=== PATIENT | female | born 1970 | race Caucasian/White ===

== ENCOUNTER 2024-02-14 20:38 | Inpatient (IN) | payer OTHER ==
[~2024-02-14] VITALS: Ht 152.4 cm; Wt 52.2 kg
[2024-02-14 20:38] VITALS: BP 175/90; PULSE 95; RESP 14; TEMP 97; O2SAT 96
[2024-02-14] MEDS ORDERED: DEXTROSE 50% 50 ML SYR IVP ONE (20:50)
[2024-02-14 21:16] LABS: APPEARANCE,URINE CLEAR (CLEAR); BILIRUBIN,URINE NEGATIVE (NEGATIVE); BLOOD, URINE NEGATIVE (NEGATIVE); LEUKOCYTE ESTERASE ,URINE NEGATIVE (NEGATIVE); NITRITE, URINE NEGATIVE (NEGATIVE); PH,URINE 6.5 (5.0-9.0); PROTEIN,URINE NEGATIVE (NEGATIVE); UGLUCOSE NEGATIVE (NEGATIVE); UROBILINOGEN,URINE 0.2 EU/dL (0.2 - 1)
[2024-02-14 21:17] LABS: BASOPHILS % (AUTO) 0.4 % (0.0-2.0); EOSINOPHILS % (AUTO) 0.3 % (0.0-4.0); HEMATOCRIT 30.1 % (36-48); HEMOGLOBIN 10.9 g/dL (12.0-16.0); LYMPHOCYTES % (AUTO) 32.6 % (20.5-51.1); MEAN CORPUSCULAR HEMOGLOBIN 31 pg (27-31); MEAN CORPUSCULAR HGB CONC 36 g/dL (33-37); MEAN CORPUSCULAR VOLUME 85.1 fL (80-94); MONOCYTES # (AUTO) 0.4 K/uL (0.8-1.0); MONOCYTES % (AUTO) 5.8 % (1.7-9.3); NEUTROPHILS # (AUTO) 3.7 K/uL (1.8-7.7); NEUTROPHILS % (AUTO) 60.9 % (42.2-75.2); PLATELET COUNT (AUTO) 304 K/uL (140-450); RED BLOOD CELL COUNT(AUTO) 3.54 MIL/uL (4.20-5.40); RED CELL DISTRIBUTION WIDTH 13.1 % (11.6-13.7)
[2024-02-14] MEDS: DEXTROSE 50% 50 ML SYR IVP ONE (21:17)
[2024-02-14] MEDS: NACL 0.9% 1,000 ML IV ONE (21:18)
[2024-02-14 21:19] LABS: COLOR,URINE STRAW (YELLOW)
[2024-02-14 21:28] LABS: ANION GAP 12.7 (8-16); CALCIUM 8.7 mg/dL (8.5-10.1); CARBON DIOXIDE 27.1 mmol/L (21-32); CREATININE 0.7 mg/dL (0.6-1.3); POTASSIUM 3.8 mmol/L (3.5-5.1)
[2024-02-14 21:41] LABS: ALANINE AMINOTRANSFERASE 45 U/L (12-78); ALBUMIN 3.8 g/dL (3.4-5.0); ALKALINE PHOSPHATASE 76 U/L (50-136); ASPARTATE AMINOTRANSFERASE 43 U/L (15-37); BILIRUBIN,DIRECT 0.1 mg/dL (0.0-0.3); THYROID STIMULATING HORMONE 2.06 uIU/mL (0.34-3.74); TOTAL BILIRUBIN 0.4 mg/dL (0.0-1.0); TOTAL PROTEIN, SERUM 7.1 g/dL (6.4-8.2)
[2024-02-14 21:56] LABS: INR 0.95 (0.8-1.2); PARTIAL THROMBOPLASTIN TIME 30.9 secs (22-35.6)
[2024-02-14] MEDS ORDERED: MAG SULF 2000 MG/WATER PREMIX 50 ML IV PRN (23:05)
[2024-02-14] MEDS ORDERED: ONDANSETRON 4 MG/2 ML VIAL IVP PRN (23:05)
[2024-02-14] MEDS ORDERED: MAGNESIUM OXIDE 400 MG TAB PO PRN (23:05)
[2024-02-14] MEDS ORDERED: KCL 20 MEQ IN 100 mL PREMIX 200 ML IV PRN (23:05)
[2024-02-14] MEDS ORDERED: ACETAMINOPHEN 325 MG TAB PO PRN (23:05)
[2024-02-14] MEDS: ASPIRIN 325 MG TAB PO ONE (23:05)
[2024-02-14] MEDS ORDERED: POTASSIUM CHLORIDE 10 MEQ TABER PO PRN (23:05)
[2024-02-14] MEDS ORDERED: DEXTROSE 50% 50 ML SYR IVP PRN (23:10)
[2024-02-14] MEDS ORDERED: GLIP5TER PO (23:35)
[2024-02-14] MEDS ORDERED: LISI-953 PO (23:35)
[2024-02-14] MEDS: NACL 0.9% 1,000 ML IV SCH (23:37)
[2024-02-15 00:50] VITALS: BP 122/82; PULSE 82; PULSE 84; RESP 18; TEMP 98.3; O2SAT 97
[2024-02-15] MEDS: DEXT 5% / NACL 0.9% 500 ML IV ONE (00:50)
[2024-02-15 04:15] VITALS: PULSE 76
[2024-02-15] MEDS: BLOOD GLUCOSE MONITORING 1 DEV DEV FS SCH (06:56)
[2024-02-15 07:36] LABS: BASOPHILS % (AUTO) 0.8 % (0.0-2.0); EOSINOPHILS % (AUTO) 0.5 % (0.0-4.0); HEMATOCRIT 28.3 % (36-48); LYMPHOCYTES # (AUTO) 1.7 K/uL (2.5-16.5); LYMPHOCYTES % (AUTO) 42.1 % (20.5-51.1); MEAN CORPUSCULAR HEMOGLOBIN 30 pg (27-31); MEAN CORPUSCULAR HGB CONC 35 g/dL (33-37); MEAN CORPUSCULAR VOLUME 85.2 fL (80-94); MONOCYTES # (AUTO) 0.3 K/uL (0.8-1.0); MONOCYTES % (AUTO) 7.7 % (1.7-9.3); NEUTROPHILS % (AUTO) 48.9 % (42.2-75.2); PLATELET COUNT (AUTO) 307 K/uL (140-450); RED BLOOD CELL COUNT(AUTO) 3.33 MIL/uL (4.20-5.40); RED CELL DISTRIBUTION WIDTH 13.2 % (11.6-13.7); WHITE BLOOD COUNT (AUTO) 4.1 K/uL (4.8-10.8)
[2024-02-15 07:50] LABS: ANION GAP 10.6 (8-16); CALCIUM 8.4 mg/dL (8.5-10.1); CARBON DIOXIDE 24.7 mmol/L (21-32); CREATININE 0.5 mg/dL (0.6-1.3); POTASSIUM 4.3 mmol/L (3.5-5.1)
[2024-02-15 07:58] LABS: MAGNESIUM 1.9 mg/dL (1.8-2.4); PHOSPHORUS 3.8 mg/dL (2.5-4.9)
[2024-02-15 08:00] VITALS: BP 138/77; PULSE 91; RESP 18; TEMP 97.1; O2SAT 98
[2024-02-15] MEDS: HYDROcodone/APAP 5/325 MG 1 TAB TAB PO PRN (08:17)
[2024-02-15] MEDS: NACL 0.45% 1,000 ML IV SCH (09:50)
[2024-02-15] MEDS: INSULIN LISPRO SLIDING SCALE 100 UNITS/ML VIAL SUBQ PRN (11:59)
[2024-02-15 12:00] VITALS: BP 144/79; PULSE 80; PULSE 88; RESP 18; TEMP 97; O2SAT 98
[2024-02-15 15:23] VITALS: BP 144/79; PULSE 88; RESP 18; TEMP 97.1
[2024-02-15 16:04] LABS: ANION GAP 10.8 (8-16); CALCIUM 8.5 mg/dL (8.5-10.1); CARBON DIOXIDE 24.9 mmol/L (21-32); CREATININE 0.5 mg/dL (0.6-1.3); POTASSIUM 4.7 mmol/L (3.5-5.1)
[2024-02-15] MEDS ORDERED: MEDS-TO-BEDS MC SCH (21:00)
== END 2024-02-15 16:35 | disposition home or self-care (01) | DRG 190 ==
LOC: MED 20:38 → MTU 23:04 → OBSVTOIN 23:04 → INTOOBSV 23:04 → MTU 23:35
PROVIDERS: ADMIT Internal Medicine; ATTEND Internal Medicine
DX: I21.4 Non-ST elevation (NSTEMI) myocardial infarction (principal); E11.649 Type 2 diabetes mellitus with hypoglycemia without coma; E87.1 Hypo-osmolality and hyponatremia; I10 Essential (primary) hypertension; Z79.899 Other long term (current) drug therapy; D53.9 Nutritional anemia, unspecified
CPT/HCPCS: 36415; 70450; 71045; 80048; 80076; 81003; 82948; 83605; 83735; 84100; 84443; 84484; 85025; 85610; 85730; 87040; 87081; 93005; 96361; 96374; 99291; G0378; J1644

== ENCOUNTER 2024-03-31 15:22 | Emergency (ER) | payer OTHER ==
[~2024-03-31] VITALS: Ht 152.4 cm; Wt 63.2 kg
[~2024-03-31 15:22] MED LIST: GLIP5TER PO; LISI-953 PO
[2024-03-31 15:35] VITALS: BP 154/81; PULSE 94; RESP 18; TEMP 97.9; O2SAT 100
[2024-03-31] MEDS ORDERED: METH-1681 PO (17:46)
[2024-03-31] MEDS ORDERED: IBUP-2213 PO (17:46)
[2024-03-31] MEDS: KETOROLAC 30 MG/ML VIAL IM ONE (18:12)
[2024-03-31] MEDS ORDERED: LID5T TP (18:40)
[2024-03-31 18:47] VITALS: BP 142/78; PULSE 89; RESP 18; TEMP 97.9; O2SAT 100
== END 2024-03-31 18:48 | disposition home or self-care (01) ==
LOC: MED 15:22
DX: S29.012A Strain of muscle and tendon of back wall of thorax, initial encounter (principal); S46.911A Strain of unspecified muscle, fascia and tendon at shoulder and upper arm level, right arm, initial encounter; E11.9 Type 2 diabetes mellitus without complications; I10 Essential (primary) hypertension; Z79.899 Other long term (current) drug therapy; W07.XXXA Fall from chair, initial encounter; Y93.89 Activity, other specified; Y92.89 Other specified places as the place of occurrence of the external cause; Y99.8 Other external cause status
CPT/HCPCS: 72072; 73030; 81025; 96372; 99284; J1885

== ENCOUNTER 2024-05-19 15:23 | Emergency (ER) | payer OTHER ==
[~2024-05-19] VITALS: Ht 157.5 cm; Wt 62.6 kg
[~2024-05-19 15:23] MED LIST changes: +IBUP-2213 PO; +LID5T TP; +METH-1681 PO
[2024-05-19 15:31] VITALS: BP 138/69; PULSE 90; RESP 22; TEMP 98; O2SAT 99
[2024-05-19] MEDS ORDERED: GABA300C PO (16:13)
[2024-05-19] MEDS: GABAPENTIN 300 MG CAP PO ONE (16:15)
[2024-05-19 16:29] VITALS: BP 136/68; PULSE 86; RESP 18; TEMP 98; O2SAT 99
[2024-05-19] MEDS ORDERED: DICL20GE TP (16:29)
== END 2024-05-19 16:30 | disposition home or self-care (01) ==
LOC: MED 15:23
DX: E11.40 Type 2 diabetes mellitus with diabetic neuropathy, unspecified (principal); Z79.84 Long term (current) use of oral hypoglycemic drugs; I10 Essential (primary) hypertension; Z79.1 Long term (current) use of non-steroidal anti-inflammatories (NSAID); Z79.899 Other long term (current) drug therapy
CPT/HCPCS: 99283

== ENCOUNTER 2024-07-19 15:04 | Emergency (ER) | payer OTHER ==
[~2024-07-19] VITALS: Ht 152.4 cm; Wt 63.5 kg
[~2024-07-19 15:04] MED LIST changes: +DICL20GE TP; +GABA300C PO
[2024-07-19 15:33] VITALS: BP 147/81; PULSE 108; RESP 18; TEMP 98; O2SAT 100
[2024-07-19] MEDS ORDERED: GABA300C PO (17:45)
[2024-07-19 18:58] VITALS: BP 134/72; PULSE 78; RESP 18; TEMP 97.3; O2SAT 99
== END 2024-07-19 17:49 | disposition home or self-care (01) ==
LOC: MED 15:04
DX: E11.40 Type 2 diabetes mellitus with diabetic neuropathy, unspecified (principal); I10 Essential (primary) hypertension; Z79.899 Other long term (current) drug therapy
CPT/HCPCS: 82948; 99283